=== PATIENT | male | born 2000 | race Caucasian/White ===

== ENCOUNTER 2021-02-22 13:40 | Emergency (ER) | payer BC, SELFPAY ==
[2021-02-22 14:10] VITALS: BP 130/86; PULSE 97; RESP 14; TEMP 37.2; O2SAT 100
--- NOTE | 2021-02-22 14:43 | ED.URI ---
HPI - URI/Sore Throat General Chief Complaint: Upper Respiratory Infection Stated Complaint: sore throat Time Seen by Provider: 02/22/21 14:38 Source: patient and RN notes reviewed Mode of arrival: ambulatory Limitations: no limitations History of Present Illness HPI Narrative: 20-year-old male with history of tonsillectomy, no other significant medical history presents with concern for sore throat and right ear pain, intermittent headache that started last night. He reports his mother, who he lives with has tested positive for strep last week. Reports has not been vaccinated for Covid. Denies any [id number] intervention. He denies cough, sore throat, shortness of breath, bodies, chills, fever, sweats. MD elicited complaint: sore throat Related Data Home Medications Medication Instructions Recorded Confirmed risperidone [Risperdal] 20 mg PO .HS 02/22/21 02/22/21 Allergies Allergy/AdvReac Type Severity Reaction Status Date / Time No Known Allergies Allergy Verified 02/22/21 14:23 Review of Systems Review of Systems: CONSTITUTIONAL: Denies malaise, chills, sweats, or fever. EYES: Denies visual changes, redness, or discharge. ENT: Denies rhinorrhea, congestion, sinus pain. Reports sore throat, otalgia. CARDIOVASCULAR: Denies chest pain, palpitations, or edema. RESPIRATORY: Denies cough or dyspnea. GASTROINTESTINAL: Denies abdominal pain, nausea, vomiting, diarrhea SKIN: Denies rash or itching. MUSCULOSKELETAL: Denies myalgia. NEUROLOGIC: Denies headache. All systems reviewed & are unremarkable except as noted in HPI and below PMFSH Surgical History Surgical History (Updated 06/19/19 @ 16:04 by Kimmie Caceres MA) History of tonsillectomy Family History Family History Mother Patient's mother is in good health Father Patient's father is in good health Social History Social History Smoking status: Never smoker Second hand tobacco smoke exposure: No Alcohol intake: never Comments At time of signature, agree with nursing past medical, surgical, social and family history. There is no relevant family history pertinent to the presenting complaint Exam Narrative: GENERAL: Well-appearing, well-nourished, and in no acute distress. HEAD: Normocephalic EYES: PERRLA, conjunctivae clear ENT: Nares clear. Mucous membranes moist. TM pearly maynard with dull light reflex bilaterally; no tragal tenderness. Oropharynx not erythematous without lesions. Tonsils not enlarged and without exudate, no drooling, no hoarseness, no trismus, uvula midline. NECK: Supple. No lymphadenopathy CHEST: Clear to auscultation, breath sounds equal. No wheezing, rhonchi, rales, or stridor. No respiratory distress, speaks in full sentences. HEART: Regular rate and rhythm. No murmur heard. SKIN: Warm, dry, no rash. NEURO: Alert and oriented x3. PSYCH: Normal mood and affect Course Course Emergency Course: Patient is aware of diagnosis, understands and agrees to treatment plan. Anticipatory guidance given. Patient agrees to follow-up as directed and is aware of reasons to seek care at the emergency department. Portions of this record may have been created with voice recognition software Vital Signs Vital signs: Vital Signs Temperature 99 F 02/22/21 14:10 Pulse Rate 97 02/22/21 14:10 Respiratory Rate 14 02/22/21 14:10 Blood Pressure 130/86 02/22/21 14:10 Pulse Oximetry 100 02/22/21 14:10 Temperature 99 F 02/22/21 14:10 Pulse Rate 97 02/22/21 14:10 Respiratory Rate 14 02/22/21 14:10 Blood Pressure 130/86 02/22/21 14:10 Pulse Oximetry 100 02/22/21 14:10 Reviewed. MDM - URI/Sore Throat MDM Narrative Medical decision making narrative: Differential diagnosis considered: Moran virus, strep pharyngitis, allergic rhinitis, upper respiratory tract infection, sinusitis, rhinosi
[2021-02-23 19:18] LABS: SARS-CoV-2 RNA PCR Negative
== END 2021-02-22 14:55 | disposition home or self-care (01) ==
PROVIDERS: Emergency Provider Nurse Practitioner
DX: J02.9 Acute pharyngitis, unspecified (principal); Z20.822 Contact with and (suspected) exposure to COVID-19
CPT/HCPCS: 87081; 87880; 99213; C9803; G0463; U0003; U0005

== ENCOUNTER 2022-10-21 18:33 | Emergency (ER) | payer OTHER, SELFPAY ==
--- NOTE | ~2022-10-21 | XR_ITS ---
EXAMINATION: XR scapula RT INDICATION: Right shoulder pain TECHNIQUE: Four views of the right scapula are obtained. COMPARISON: 1919 hours FINDINGS: The scapular irregularity seen on the shoulder radiographs does not definitely persist. Bon e alignment is normal. The glenohumeral and acromioclavicular joints appear normal. IMPRESSION: 1. No definite scapular fracture. Reviewed, dictated and finalized at location F.
--- NOTE | ~2022-10-21 | XR_ITS ---
EXAMINATION: XR shoulder RT min 2V INDICATION: Right shoulder pain TECHNIQUE: Four views of the right shoulder are submitted. COMPARISON: None FINDINGS: There appears to be a scapular body fracture. Glenohumeral and acromioclavicular joint spa dianne are normal. Soft tissues are unremarkable. IMPRESSION: 1. Probable scapular body fracture. Dedicated radiographs of the scapula or further evaluation with C T is recommended. Reviewed, dictated and finalized at location F. IMPRESSION: 1. Probable scapular body fracture. Dedicated radiographs of the scapula or fur ther evaluation with CT is recommended.
[2022-10-21 18:42] VITALS: BP 124/86; PULSE 83; RESP 16; TEMP 36.8; O2SAT 100
--- NOTE | 2022-10-21 19:13 | ED.GENADULT ---
HPI - General Adult General Chief complaint: Extremity Injury, Upper Stated complaint: Right Arm Injury Source: patient Mode of arrival: ambulatory Limitations: no limitations History of Present Illness HPI narrative: Patient presents for evaluation of right upper extremity pain. Symptom onset 0530 this morning. He indicates he woke from sleep with the symptoms. He believes his symptoms are related to injuring himself last night. His father asked him to try to left him up in the air. In the doing so he believes he injured his arm. He rates his pain 8/10 severity, described as throbbing. It radiates down distally. When he extends his arm, he notes a tremor. He is right-hand dominant. He tried taking obzw-guh-[id number] agents for his symptoms without considerable improvement thereafter. Related Data Allergies Allergy/AdvReac Type Severity Reaction Status Date / Time No Known Allergies Allergy Verified 02/22/21 14:23 Review of Systems Review of Systems: CONSTITUTIONAL: Denies fever, chills, or sweats. EYES: Denies visual changes, redness, or discharge. ENT: Denies rhinorrhea, congestion, sore throat, or otalgia. CARDIOVASCULAR: Denies chest pain, palpitations, or edema. RESPIRATORY: Denies cough or dyspnea. GASTROINTESTINAL: Denies abdominal pain, nausea, vomiting, or diarrhea. GENITOURINARY: Denies dysuria or hematuria. SKIN: Denies rash or itching. MUSCULOSKELETAL: Reports pain in the right upper extremity. NEUROLOGIC: Reports tremor in right upper extremity.Denies headache, numbness, dizziness, or weakness. PSYCHIATRIC: Denies anxiety or depression. [facility] Past Medical History Medical History No pertinent past medical history Surgical History Surgical History History of tonsillectomy Family History Family History Mother Patient's mother is in good health Father Patient's father is in good health Social History Social History Smoking status: Never smoker Second hand tobacco smoke exposure: No Alcohol intake: never Living arrangements: with family Gender identity (if verbalized by the patient): Male Spiritual care concerns: No Exam Narrative: GENERAL: Well-appearing, well-nourished, and in no acute distress. HEAD: Normocephalic, atraumatic. EYES: PERRLA and EOMI. ENT: Nares clear, no rhinorrhea or epistaxis. Mucous membranes moist. Oropharynx without tonsillar hypertrophy exudate or other lesions. Bilateral TMs pearly maynard nonbulging NECK: Supple. No adenopathy or masses. No carotid bruits or JVD CHEST: Clear to auscultation. No respiratory distress. No wheezes rales or rhonchi HEART: Regular rate and rhythm. No murmur heard. Normal peripheral pulses. ABDOMEN: Soft, nontender, nondistended, normal active bowel sounds. EXTREMITIES: full active range of motion of right shoulder and right elbow will put he exhibits hesitancy with movement secondary to pain. He is able to pronate and supinate the right arm. 5/5 gross strength against resistance with flexion and extension of the right elbow. 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 NEURO: No focal deficits. Alert and oriented x3. PSYCH: Normal mood and affect. Course Course Emergency Course: THIS IS A 21-YEAR-OLD MALE WHO PRESENTED FOR EVALUATION OF PAIN IN THE RIGHT UPPER EXTREMITY FOLLOWING AN INJURY. RIGHT SHOULDER FILM WITH QUESTIONABLE SCAPULAR FRACTURE. SCAPULA DEDICATED FILM WAS PERFORMED AND NEGATIVE. HE HAS NO TENDERNESS OVER THE RIGHT SCAPULA. HE LIKELY HAS A SOFT TISSUE IN RIGHT UPPER EXTREMITY. ADVISED ON RICE THERAPY. NSAIDS FOR PAIN. PROVIDED A SLING. FOLLOW-UP WITH ORTHOPEDICS. GO TO THE ER FOR INTRACTABLE PAIN. PATIENT IN AGREEMENT WITH PLAN
--- NOTE | 2022-10-21 19:22 | PC.NURSE ---
PT DECLINED ICE FOR COMFORT
== END 2022-10-21 20:19 | disposition home or self-care (01) ==
PROVIDERS: Emergency Provider Nurse Practitioner
DX: S46.911A Strain of unspecified muscle, fascia and tendon at shoulder and upper arm level, right arm, initial encounter (principal); X50.0XXA Overexertion from strenuous movement or load, initial encounter
CPT/HCPCS: 73010; 73030; 99213; A4565; G0463

== ENCOUNTER 2024-01-02 18:31 | Emergency (ER) | payer OTHER, SELFPAY ==
[2024-01-02 18:35] VITALS: BP 145/98; PULSE 77; RESP 16; TEMP 36.6; O2SAT 100
--- NOTE | 2024-01-02 19:05 | ED.ABDPAIN ---
HPI - Abdominal Pain General Chief Complaint: Abdominal Pain Stated Complaint: lower left abdo pain Time Seen by Provider: 01/02/24 18:54 Source: patient and RN notes reviewed Mode of arrival: ambulatory Limitations: no limitations History of Present Illness HPI narrative: Patient presents today complaining of left lower quadrant abdominal pain since 10:00 a.m. this morning. States pain improved for a period of time in worsened again approximately 1 hour ago. Associated symptoms include nausea. Denies fever, diarrhea, constipation, URI symptoms, urinary symptoms. Currently rates his pain 8/10 and has tried no [id number]-vqxejbt treatment prior to arrival. No GI history. No history of kidney stones. No history of abdominal surgeries. Related Data Home Medications Medication Instructions Recorded Confirmed No Home Medications 06/27/23 06/27/23 Allergies Allergy/AdvReac Type Severity Reaction Status Date / Time No Known Allergies Allergy Verified 06/27/23 14:33 Review of Systems Review of Systems: CONSTITUTIONAL: Denies body aches, fever, chills, or sweats. EYES: Denies visual changes, redness, or discharge. ENT: Denies rhinorrhea, congestion, sore throat, or otalgia. CARDIOVASCULAR: Denies chest pain, palpitations, or edema. RESPIRATORY: Denies cough or dyspnea. GASTROINTESTINAL: Denies vomiting, or diarrhea.+ nausea, abdominal pain GENITOURINARY: Denies dysuria or hematuria. SKIN: Denies rash, itching, or wounds. MUSCULOSKELETAL: Denies back pain, joint pain, or myalgia. NEUROLOGIC: Denies headache, numbness, tingling, or weakness. PSYCH: Denies depression or anxiety. [facility] Past Medical History Medical History No pertinent past medical history Surgical History Surgical History History of tonsillectomy Family History Family History Mother Diabetes mellitus Depression Anxiety Father Anxiety Depression Hypertension Grandparent Diabetes mellitus Cerebrovascular accident Social History Social History Smoking status: Never smoker Second hand tobacco smoke exposure: No Alcohol intake: never Substance use: never Substance use type: does not use Do You Feel Safe in your Home?: Yes Lack of Transportation: No Lack of Food: Never True Current Housing: I Have Housing Concerned About Future Housing: No Difficulty Paying Gas/Electric Bills: No Difficulty Paying for Meds: No Education: High School Diploma/GED Difficulty w/ Childcare or Family Care: No Living arrangements: with family Occupation/Education: occupation Gender identity (if verbalized by the patient): Male Spiritual care concerns: No Comments Reviewed Exam Narrative: GENERAL: Well-appearing, well-nourished, and in no acute distress.+ diaphoretic HEAD: Normocephalic, atraumatic. EYES: EOMI. No redness or drainage. Conjunctivae normal. ENT: Mucous membranes pink and moist. NECK: Normal AROM. CHEST: No respiratory distress. Clear to auscultation. HEART: Regular rate and rhythm. No murmur appreciated. Normal peripheral pulses. ABDOMEN: Soft, nondistended, normal active bowel sounds.+ left lower quadrant abdominal tenderness EXTREMITIES: Normal range of motion. No edema. SKIN: Warm, dry, no rash. Capillary refill normal. Normal skin turgor. NEURO: No focal deficits. Alert and oriented x3. Gait steady. PSYCH: Normal affect. No signs of depression or anxiety. Course Course Emergency Course: Patient vomiting upon exam. Level of Care: Express Care Visit Vital Signs Vital signs: Vital Signs Temperature 97.8 F 01/02/24 18:35 Pulse Rate 77 01/02/24 18:35 Respiratory Rate 16 01/02/24 18:35 Blood Pressure 145/98 H 01/02/24 18:35
== END 2024-01-02 19:29 | disposition short-term general hospital (02) ==
PROVIDERS: Emergency Provider Nurse Practitioner; PCP Family Medicine
DX: R10.32 Left lower quadrant pain (principal); R11.2 Nausea with vomiting, unspecified
CPT/HCPCS: 99212; G0463

== ENCOUNTER 2024-01-25 19:11 | Emergency (ER) | payer OTHER, SELFPAY ==
[2024-01-25 19:18] VITALS: BP 150/82; PULSE 82; RESP 16; TEMP 37.2; O2SAT 100
--- NOTE | 2024-01-25 19:55 | ED.GENADULT ---
HPI - General Adult General Chief complaint: Urogenital-Male Stated complaint: Urinary Problem Source: patient Mode of arrival: ambulatory Limitations: no limitations History of Present Illness HPI narrative: Patient presents for evaluation of urinary symptoms. He indicates he was seen here in the middle of December at which time he was transferred to [facility] Emergency Department in [facility]. He was found to have a 6 mm stone on the left. He was discharged from the emergency department. He followed up with [facility]. He had a stent placed in his left ureter on Saturday of this week and it sounds like he also had a stone extraction. He had some pain on the left side of his abdomen following the procedure for approximately 3 days. Two days ago his symptoms significantly improved. Yesterday he noted recurrence of the pain. He has also experienced dysuria, urinary urgency, hesitancy, frequency, incomplete emptying and hematuria. He denies any fever, chills, nausea, vomiting, urethral discharge or testicular pain. He contacted [facility] and was instructed to come to urgent care for a urine specimen. He states his pain in the left side of his abdomen and suprapubic region are 1/10 in severity. Related Data Home Medications Medication Instructions Recorded Confirmed oxybutynin chloride 5 mg mg PO 01/25/24 tablet,extended release 24 hr phenazopyridine 100 mg tablet mg 01/25/24 tamsulosin 0.4 mg capsule mg PO 01/25/24 Allergies Allergy/AdvReac Type Severity Reaction Status Date / Time No Known Allergies Allergy Verified 01/25/24 19:17 Review of Systems Review of Systems: CONSTITUTIONAL: Denies fever, chills, or sweats. EYES: Denies visual changes, redness, or discharge. ENT: Denies rhinorrhea, congestion, sore throat, or otalgia. CARDIOVASCULAR: Denies chest pain, palpitations, or edema. RESPIRATORY: Denies cough or dyspnea. GASTROINTESTINAL: Denies abdominal pain, nausea, vomiting, or diarrhea. GENITOURINARY: Reports urinary frequency, urgency, hesitancy, incomplete emptying, variable strength of stream, hematuria, and suprapubic discomfort. SKIN: Denies rash or itching. MUSCULOSKELETAL: Denies back pain, joint pain, or myalgia. NEUROLOGIC: Denies headache, numbness, dizziness, or weakness. PSYCHIATRIC: Denies anxiety or depression. [facility] Past Medical History Medical History No pertinent past medical history Surgical History Surgical History History of tonsillectomy S/P ureteral stent placement Family History Family History Mother Diabetes mellitus Depression Anxiety Father Anxiety Depression Hypertension Grandparent Diabetes mellitus Cerebrovascular accident Social History Social History Smoking status: Never smoker Second hand tobacco smoke exposure: No Alcohol intake: never Substance use: never Substance use type: does not use Do You Feel Safe in your Home?: Yes Lack of Transportation: No Lack of Food: Never True Current Housing: I Have Housing Concerned About Future Housing: No Difficulty Paying Gas/Electric Bills: No Difficulty Paying for Meds: No Education: High School Diploma/GED Difficulty w/ Childcare or Family Care: No Living arrangements: with family Occupation/Education: occupation Gender identity (if verbalized by the patient): Male Spiritual care concerns: No Exam Narrative: GENERAL: Well-appearing, well-nourished, and in no acute distress. HEAD: Normocephalic, atraumatic. EYES: PERRLA and EOMI. ENT: Nares clear, no rhinorrhea or epistaxis. Mucous membranes moist. Oropharynx without tonsillar hypertrophy exudate or other lesions. Bilateral TMs pearly maynard
[2024-01-25 20:11] LABS: EDUAAPPEAR Cloudy; EDUABILI Negative; EDUABLOOD 3+; EDUACOLOR1 Red; EDUAGLUCOSE Negative; EDUAKETONE Negative; EDUALEUKO 1+; EDUANITRATE Negative; EDUAPROTEIN 2+; EDUASPGRAVITY 1.025; EDUAUROBILI 0.2
== END 2024-01-25 20:12 | disposition home or self-care (01) ==
PROVIDERS: Emergency Provider Nurse Practitioner; PCP Family Medicine
DX: N39.0 Urinary tract infection, site not specified (principal)
CPT/HCPCS: 81003; 87086; 99213; G0463